=== PATIENT | male | born 1980 | race Caucasian/White ===

== ENCOUNTER → 2016-09-16 | Day surgery (SDC) | payer OTHER ==
[~2016-09-16] MED LIST: CLARITIN10 MG PO; PROTONIX40 MG PO; SINGULAIR10 MG PO
== END | disposition home or self-care (01) ==
LOC: OR 08:16
PROVIDERS: Internal Medicine Gastroenterology
PROC: 0DB68ZX Excision of Stomach, Via Natural or Artificial Opening Endoscopic, Diagnostic (ICD-10-PCS; 2016-09-16)
PROC: 0DB38ZX Excision of Lower Esophagus, Via Natural or Artificial Opening Endoscopic, Diagnostic (ICD-10-PCS; principal; 2016-09-16 15:00)
DX: K29.70 Gastritis, unspecified, without bleeding (principal); K21.9 Gastro-esophageal reflux disease without esophagitis; K76.0 Fatty (change of) liver, not elsewhere classified; E66.9 Obesity, unspecified; Z79.899 Other long term (current) drug therapy; Z90.49 Acquired absence of other specified parts of digestive tract
CPT/HCPCS: J2250; J3010; J7030